=== PATIENT | female | born 2000 | race Caucasian/White ===

== ENCOUNTER 2019-02-05 11:57 | Emergency (ER) | payer MEDICAID ==
[~2019-02-05] VITALS: Ht 165.1 cm; Wt 44.7 kg
[2019-02-05 12:08] VITALS: Ht 165.1 cm; Wt 44.7 kg
[2019-02-05] MEDS ORDERED: PRENAVITE1 TAB PO (12:10)
[2019-02-05 12:35] LABS: BASOPHILS 0.2 % (0-2); EOSINOPHILS 2.1 % (0-7); HEMATOCRIT 35.5 % (36.0-48.0); HEMOGLOBIN 11.9 g/dL (12-16); LYMPHOCYTES 30.6 % (15-50); MCH 27.4 pg (26.0-34.0); MCHC 33.5 g/dL (31.0-37.0); MCV 81.8 fL (80.0-100.0); MEAN PLATELET VOLUME 10.2 fL (7.4-10.4); MONOCYTES 10.6 % (2-11); NEUTROPHILS 56.5 % (40-80); PLATELET COUNT 232 10x3/uL (130-400); RBC 4.34 10x6/uL (4.00-5.40); RDW 14.2 % (11.5-14.5); WBC 5.3 10x3/uL (4.8-10.8)
[2019-02-05 12:49] LABS: ALKALINE PHOSPHATASE 39 U/L (46-116); ALT (SGPT) 12 U/L (10-68); BILIRUBIN - TOTAL 0.39 mg/dL (0.2-1.3); CALC OSMOLALITY 268 mosm/kg (275-300); CALCIUM 8.9 mg/dL (8.5-10.1); CARBON DIOXIDE 29.9 mmol/L (21.0-32.0); CHLORIDE - SERUM 101 mmol/L (98-107); CREATININE - SERUM 0.6 mg/dL (0.6-1.3); GLUCOSE 92 mg/dL (74-106); POTASSIUM - SERUM 3.5 mmol/L (3.5-5.1); PROTEIN - SERUM 7.4 g/dL (6.4-8.2); SODIUM 136 mmol/L (136-145); UREA NITROGEN 5 mg/dL (7-18); eGFR NON AFRICAN AMERICAN > 90 mL/min (90-120)
[2019-02-05 12:52] LABS: APPEARANCE HAZY (CLEAR); BACTERIA FEW /hpf (NONE SEEN); BILIRUBIN NEGATIVE (NEGATIVE); COLOR YELLOW (YELLOW); EPITHELIAL CELLS 0-5 /hpf (0-5); GLUCOSE NEGATIVE (NEGATIVE); KETONE NEGATIVE (NEGATIVE); NITRITE NEGATIVE (NEGATIVE); PROTEIN NEGATIVE (NEGATIVE); RED CELLS - URINE RARE /hpf (0-5); SPECIFIC GRAVITY 1.025 (1.005-1.020); UROBILINOGEN NORMAL (NORMAL); WHITE CELLS - URINE OCC /hpf (0-5)
[2019-02-05 13:16] LABS: AMYLASE - SERUM 68 U/L (25-115); HCG - QUANTITATIVE (MATERNAL) 55943 mIU/mL; LIPASE 131 U/L (73-393)
[2019-02-05 15:49] VITALS: BP 95/65
== END 2019-02-05 15:45 | disposition home or self-care (01) ==
LOC: D.ER 11:57
PROVIDERS: Family Medicine
DX: O26.891 Other specified pregnancy related conditions, first trimester (principal); Z3A.00 Weeks of gestation of pregnancy not specified; R10.9 Unspecified abdominal pain

== ENCOUNTER 2019-02-15 16:47 | Emergency (ER) | payer SELFPAY ==
[~2019-02-15] VITALS: Ht 165.1 cm; Wt 45.2 kg
[~2019-02-15 16:47] MED LIST: PRENAVITE1 TAB PO
[2019-02-15 16:50] VITALS: Ht 165.1 cm; Wt 45.2 kg
[2019-02-15] MEDS ORDERED: GINGER (16:55)
[2019-02-15 20:10] VITALS: BP 107/69
== END 2019-02-15 20:10 | disposition home or self-care (01) ==
LOC: D.ER 16:47
DX: O26.891 Other specified pregnancy related conditions, first trimester (principal); Z3A.01 Less than 8 weeks gestation of pregnancy

== ENCOUNTER 2019-02-18 17:11 | Emergency (ER) | payer MEDICAID ==
[~2019-02-18] VITALS: Ht 165.1 cm; Wt 45.2 kg
[~2019-02-18 17:11] MED LIST changes: +GINGER
[2019-02-18 17:16] VITALS: Ht 165.1 cm; Wt 45.2 kg
[2019-02-18 18:23] LABS: BASOPHILS 0.2 % (0-2); EOSINOPHILS 1.3 % (0-7); HEMATOCRIT 34.7 % (36.0-48.0); HEMOGLOBIN 11.8 g/dL (12-16); IMMATURE GRANULOCYTES 0.2 % (0-5); LYMPHOCYTES 23.1 % (15-50); MCH 27.6 pg (26.0-34.0); MCV 81.1 fL (80.0-100.0); MEAN PLATELET VOLUME 10.4 fL (7.4-10.4); MONOCYTES 7.5 % (2-11); NEUTROPHILS 67.7 % (40-80); PLATELET COUNT 213 10x3/uL (130-400); RBC 4.28 10x6/uL (4.00-5.40); RDW 14.7 % (11.5-14.5); WBC 5.5 10x3/uL (4.8-10.8)
[2019-02-18 18:38] LABS: ALKALINE PHOSPHATASE 32 U/L (46-116); ALT (SGPT) 20 U/L (10-68); BILIRUBIN - TOTAL 0.36 mg/dL (0.2-1.3); CALC OSMOLALITY 263 mosm/kg (275-300); CALCIUM 8.9 mg/dL (8.5-10.1); CARBON DIOXIDE 24.8 mmol/L (21.0-32.0); CHLORIDE - SERUM 101 mmol/L (98-107); CREATININE - SERUM 0.5 mg/dL (0.6-1.3); GLUCOSE 89 mg/dL (74-106); POTASSIUM - SERUM 3.6 mmol/L (3.5-5.1); PROTEIN - SERUM 7.3 g/dL (6.4-8.2); SODIUM 134 mmol/L (136-145); UREA NITROGEN 4 mg/dL (7-18); eGFR NON AFRICAN AMERICAN > 90 mL/min (90-120)
[2019-02-18 18:58] LABS: HCG - QUANTITATIVE (MATERNAL) 153285 mIU/mL
[2019-02-18 21:20] LABS: APPEARANCE SL CLDY (CLEAR); BILIRUBIN NEGATIVE (NEGATIVE); COLOR STRAW (YELLOW); GLUCOSE NEGATIVE (NEGATIVE); KETONE NEGATIVE (NEGATIVE); NITRITE NEGATIVE (NEGATIVE); PROTEIN NEGATIVE (NEGATIVE); UROBILINOGEN NORMAL (NORMAL)
[2019-02-18 21:22] LABS: RED CELLS - URINE 0-5 /hpf (0-5); WHITE CELLS - URINE 0-5 /hpf (0-5)
[2019-02-18 21:23] LABS: AMORPHOUS SEDIMENT <1+ /lpf (NONE SEEN); BACTERIA FEW /hpf (NONE SEEN); SPERMATOZOA 0-5 /hpf (NONE SEEN)
[2019-02-18 23:28] VITALS: BP 106/69
== END 2019-02-18 23:29 | disposition home or self-care (01) ==
LOC: D.ER 17:11
PROVIDERS: Family Medicine
DX: O20.9 Hemorrhage in early pregnancy, unspecified (principal); Z3A.08 8 weeks gestation of pregnancy

== ENCOUNTER → 2019-05-31 02:51 | Outpatient (CLI) | payer MEDICAID ==
[2019-02-18 17:16] VITALS: BMI 16.5
--- NOTE | 2019-05-31 02:50 | NUR ---
PT. CALLED FOR TO BE TAKEN TO NBN TO BE WEIGHED . SAME DONE. COLA DRINK SERVED TO PT. INQUIRED IF PT. WAS HUNGRY AND PT. STATES THAT SHE HAD PEANUT BUTTER CRACKERS EARLIER. DENIES ANY NEEDS.
[2019-05-31 04:14] LABS: APPEARANCE CLOUDY (CLEAR); BILIRUBIN NEGATIVE (NEGATIVE); COLOR YELLOW (YELLOW); GLUCOSE NEGATIVE (NEGATIVE); KETONE NEGATIVE (NEGATIVE); NITRITE POSITIVE (NEGATIVE); PROTEIN 2+ mg/dL (NEGATIVE); UROBILINOGEN NORMAL (NORMAL)
[2019-05-31 04:16] LABS: BACTERIA FEW /hpf (NEGATIVE); EPITHELIAL CELLS 0-5 /hpf (0-5); MUCUS <1+ /lpf (NONE SEEN)
== END | disposition home or self-care (01) ==
LOC: D.LDO 02:51
PROVIDERS: ATTEND Obstetrics & Gynecology
DX: O26.892 Other specified pregnancy related conditions, second trimester (principal); R10.9 Unspecified abdominal pain; Z3A.23 23 weeks gestation of pregnancy

== ENCOUNTER → 2019-06-08 00:54 | Outpatient (CLI) | payer MEDICAID ==
[2019-02-18 17:16] VITALS: BMI 16.5
[2019-06-08 02:05] LABS: APPEARANCE HAZY (CLEAR); BILIRUBIN NEGATIVE (NEGATIVE); COLOR YELLOW (YELLOW); GLUCOSE NEGATIVE (NEGATIVE); KETONE NEGATIVE (NEGATIVE); NITRITE NEGATIVE (NEGATIVE); PROTEIN 1+ mg/dL (NEGATIVE); UROBILINOGEN NORMAL (NORMAL)
[2019-06-08 02:07] LABS: AMORPHOUS SEDIMENT <1+ /lpf (NONE SEEN); BACTERIA FEW /hpf (NEGATIVE); EPITHELIAL CELLS 0-5 /hpf (0-5); RED CELLS - URINE 0-5 /hpf (0-5); WHITE CELLS - URINE 0-5 /hpf (NEGATIVE)
== END | disposition home or self-care (01) ==
LOC: D.LDO 00:54
PROVIDERS: ATTEND Obstetrics & Gynecology
DX: O26.899 Other specified pregnancy related conditions, unspecified trimester (principal); Z3A.00 Weeks of gestation of pregnancy not specified; R10.9 Unspecified abdominal pain

== ENCOUNTER 2019-09-14 21:26 | Inpatient (IN) | payer MEDICAID ==
[~2019-09-14] VITALS: Ht 165.1 cm; Wt 63.0 kg
[2019-09-14 21:35] VITALS: BP 126/76; Ht 165.1 cm; Wt 63.0 kg
[2019-09-14 23:34] LABS: HEMATOCRIT 30.9 % (36.0-48.0); HEMOGLOBIN 10.2 g/dL (12-16); MCH 27.4 pg (26.0-34.0); MCV 83.1 fL (80.0-100.0); MEAN PLATELET VOLUME 12.1 fL (7.4-10.4); RBC 3.72 10x6/uL (4.00-5.40); RDW 18.3 % (11.5-14.5); WBC 6.9 10x3/uL (4.8-10.8)
--- NOTE | 2019-09-15 19:00 | NUR ---
REPORT RECEIVED FROM KAYKAY GATES.
--- NOTE | 2019-09-15 20:20 | NUR ---
PATIENT TRANSFERRED TO POST ROOM 1278. PATIENT ORIENTED TO ROOM AND CALL SYSTEM.
[2019-09-15 20:28] VITALS: BP 118/66
--- NOTE | 2019-09-15 20:28 | NUR ---
PATIENT SITTING UP IN BED. IN OPEN CRIB NEXT TO BED. FAMILY AT BEDSIDE. ASSESSMENT AND VITAL SIGNS DONE AT THIS TIME. RESPIRATIONS AT EASE. LUNG SOUNDS CLEAR IN ALL LEAL. HEART REGULAR RATE AND RHTYHM. ABDOMEN SOFT, NON DISTENDED. BOWEL SOUNDS PRESENT IN ALL QUADRANTS. FUNDUS FIRM, 1 BELOW UMBILICUS. LOCHIA RUBRA AND SMALL AMOUNT NOTED TO HUDSON PAD. EPISIOTOMY APPPROXIMATED. PATIENT EDUCATED ON HOW TO CARE FOR PERINEUM. PATIENT VERBALIZES UNDERSTANDING. NO EDEMA NOTED. SALINE LOCK TO L WRIST. SALINE LOCK PATENT. NO REDNESS OR EDEMA NOTED TO SITE. PATIENT STATES PAIN 8 OUT OF 10. SCHEDULED TYLENOL 1000 MG ADMINISTERED PO. PATIENT DENIES ANY FURTHER NEEDS. BED IN LOWEST POSITION, SIDE RAILS UP X 2, C/L AND WATER WITHIN REACH.
--- NOTE | 2019-09-15 22:00 | NUR ---
PATIENT SITTING UP IN BED HOLDING INFANT. PATIENT STATES PAIN 4 OUT OF 10. DENIES ANY NEEDS OR CONCERNS AT THIS TIME. BED IN LOWEST POSITIN, SIDE RAILS UP X 2, C/L AND WATER WITHIN REACH.
--- NOTE | 2019-09-15 22:40 | NUR ---
sitting up in bed . no needs voiced at this time
--- NOTE | 2019-09-15 23:45 | NUR ---
PATIENT LYING QUIETLY IN BED WITH EYES CLOSED. EASILY AROUSED. PATIENT DENIES ANY NEEDS OR CONCERNS. DENIES PAIN AT THIS TIME. BED IN LOWEST POSITION, SIDE RAILS UP X 2, C/L AND WATER WITHIN REACH.
--- NOTE | 2019-09-16 01:50 | NUR ---
PATIENT SITTING UP IN BED ATTEMPTING TO BREASTFEED. NURSERY NURSE ASSISTING PATIENT WITH .
--- NOTE | 2019-09-16 02:19 | NUR ---
PATIENT SITTING UP IN BED INFANT. TYLENOL 1000 MG ADMINISTERED AT THIS TIME, PATIENT STATES PAIN 3 OUT OF 10. DENIES ANY FURTHER NEEDS. BED IN LOWEST POSITION,SIDE RAILS UP X 2, CL AND WATER WITHIN REACH.
[2019-09-16 04:01] VITALS: BP 93/59
--- NOTE | 2019-09-16 06:00 | NUR ---
PATIENT SITTING UP IN BED. PATIENT DENIES PAIN AT THIS TIME. IN OPEN CRIB AT BEDSIDE. BED IN LOWEST POSITION, SIDE RAILS UP X 2, C/L AND WATER WITHIN REACH.
[2019-09-16 07:13] LABS: RAPID PLASMA REAGIN Non Reactive (Non Reactive)
--- NOTE | 2019-09-16 08:00 | NUR ---
SHIFT ASSESSMENT COMPLETED PER FLOWSHEET. VSS. FUNDUS FIRM, MIDLINE AND U2 WITH SCANT RUBRA LOCHIA, NO CLOTS NOTED, REPORTS THAT SHE IS VOIDING WITHOUT DIFFICULTY. ICE WATER AND SUGAR PROVIDED PER PT REQUEST. DENIES ADDITIONAL NEEDS. PT UP IN ROOM. STEADY GAIT NOTED. BED IN LOW POSITION AND CALL LIGHT PLACED WITHIN PT REACH. WILL CONTINUE TO MONITOR.
[2019-09-16 08:02] VITALS: BP 109/72
--- NOTE | 2019-09-16 08:45 | NUR ---
DENIES PAIN AND NEEDS AT THIS TIME. CURRENTLY SITTING ON COUCH BONDING WITH .
--- NOTE | 2019-09-16 11:00 | NUR ---
UP AND ABOUT IN ROOM- DENIES NEEDS.
--- NOTE | 2019-09-16 14:18 | NUR ---
ASLEEP -RESP REG AND EVEN.
--- NOTE | 2019-09-16 14:25 | NUR ---
rings call light. states is awake. vs done. requests iv come out. iv removed with cath tip intact. pressure held and bandaide applied. denies other needs.
[2019-09-16 14:29] VITALS: BP 111/68
--- NOTE | 2019-09-16 16:30 | NUR ---
THIS RN TO ROOM PER PT CALL LIGHT. PT STATES SHE WAS CONCERNED ABOUT RASH/RED SPOTS ON 'S SKIN. PT REASSURED AND EDUCATED REGARDING RASH. PT HAS QUESTIONS REGARDING , QUESTIONS ANSWERED. PT STATES WILL LATCH TO BREAST, DENIES NEED FOR ASSIST. VISITORS TO ROOM AT THIS TIME. SRUx2, CL IN REACH.
--- NOTE | 2019-09-16 19:03 | NUR ---
REPORT TO PM SHIFT.
[2019-09-16 19:24] VITALS: BP 107/72
--- NOTE | 2019-09-16 19:24 | NUR ---
VSS. PT'S FUNDUS IS FIRM, MIDLINE, 1 BELOW, SCANT RUBRA LOCHIA NOTED. PT STATES HER PAIN IS 1-2/10 TO HER PERINEAL AREA. PT HOLDING INFANT IN ARM, ATTEMPTING TO BREASTFEED. PT STATES ALL HER NEEDS ARE CURRENTLY MET. BED IN LOWEST POSITON, SIDE RAILS UP X2, CALL LIGHT IN REACH.
--- NOTE | 2019-09-16 22:21 | NUR ---
PT AT [facility] REQUESTING ANOTHER NIPPLE SHIELD. THIS RN REQUESTED NEW NIPPLE SHIELD FROM NURSERY.
--- NOTE | 2019-09-16 23:52 | NUR ---
PT ROUNDS MADE. PT STATES ALL HER NEEDS HAVE BEEN MET. FUNDUS IS FIRM, MIDLINE, 2 BELOW, SCANT BLEEDING ON HUDSON PAD. SIGNIFICANT OTHER AT BEDSIDE. BED IN LOWEST POSITION, SIDE RAILS UP X2, CALL LIGHT WITHIN REACH.
[2019-09-17 03:38] VITALS: BP 128/61
--- NOTE | 2019-09-17 03:38 | NUR ---
RN TO PT BEDSIDE TO ADMINISTER TYLENOL 1000MG PO PER MD ORDERS. PT STATES HER PAIN IS 1/10 ON A PAIN SCALE TO HER PERINEAL AREA. FUNDUS IS FIRM, MIDLINE, 2 BELOW. PT DENIES ANY DISCOMFORT, PT IS CALM AND COOPERATIVE. PT LEFT WATCHING TV. BED IN LOWEST POSITION, SIDE RAILS UP X2, CALL LIGHT IN REACH.
[2019-09-17 07:44] VITALS: BP 104/64
--- NOTE | 2019-09-17 07:46 | NUR ---
assessment done. up and about in room. verbal responses appro to questions. states pain 3-4 -perineal area. states is using dermaplast,betadine and warm water. tucks pads. denies needs at this time.
--- NOTE | 2019-09-17 08:31 | NUR ---
RINGS CALL LIGHT- STATES HAS NOSE BLEED- NO BLEEDING CURRENTLY-PT HOLDING PAPER TOWEL TO NOSE. COOL CLOTH GIVEN. WILL MONITOR.
--- NOTE | 2019-09-17 08:49 | NUR ---
sitting up on side of bed. states nose bleed is gone.
--- NOTE | 2019-09-17 09:00 | NUR ---
dr omer in unit.informed of slight nosebleed. no new orders.
--- NOTE | 2019-09-17 15:00 | NUR ---
UP AND ABOUT IN ROOM AND UNIT DESIRED. STATES THAT NEEDS DERMAPLAST AND TUCKS PADS BEFORE DISCHARGE. VACCINE HX REVIEWED AND HAS TAKEN TDAP VACCINE PREVIOUSLY- NOT ON RECOMMENDED LIST.
[2019-09-17 15:46] VITALS: BP 110/71
--- NOTE | 2019-09-17 15:58 | NUR ---
DISCHARGE INST VERBAL AND WRITTEN GIVEN. PFW INST GIVEN ALONG WITH [facility] POST WARNING SIGNS FORM. SEE ALSO SIGNED DISCHARGE INST FORM. PT HEALTH SUMMARY GIVEN. PT STATES SHE WILL READ OVER ALL INST AND ASK NURSE IF ANY QUESTIONS.
--- NOTE | 2019-09-17 19:25 | NUR ---
KINDRA,RN WHEELED PATIENT TO POV AT THIS TIME
== END 2019-09-17 19:25 | disposition home or self-care (01) | DRG 807 ==
LOC: D.LD 21:26
PROVIDERS: ADMIT Obstetrics & Gynecology; ATTEND Obstetrics & Gynecology
PROC: 10E0XZZ Delivery of Products of Conception, External Approach (ICD-10-PCS; principal; 2019-09-15)
DX: O71.82 Other specified trauma to perineum and vulva (principal); Z37.0 Single live birth; Z3A.39 39 weeks gestation of pregnancy

== ENCOUNTER 2019-09-19 07:51 | Emergency (ER) | payer MEDICAID ==
[~2019-09-19] VITALS: Ht 165.1 cm; Wt 65.9 kg
[2019-09-19 08:02] VITALS: Ht 165.1 cm; Wt 65.9 kg
[2019-09-19 08:28] LABS: BASOPHILS 0.1 % (0-2); EOSINOPHILS 2.9 % (0-7); HEMATOCRIT 32.3 % (36.0-48.0); HEMOGLOBIN 10.3 g/dL (12-16); IMMATURE GRANULOCYTES 0.4 % (0-5); LYMPHOCYTES 16.9 % (15-50); MCH 27.2 pg (26.0-34.0); MCHC 31.9 g/dL (31.0-37.0); MCV 85.2 fL (80.0-100.0); MEAN PLATELET VOLUME 10.2 fL (7.4-10.4); MONOCYTES 7.8 % (2-11); NEUTROPHILS 71.9 % (40-80); PLATELET COUNT 202 10x3/uL (130-400); RBC 3.79 10x6/uL (4.00-5.40); RDW 18.5 % (11.5-14.5); WBC 9.6 10x3/uL (4.8-10.8)
[2019-09-19 08:41] LABS: CALC OSMOLALITY 275 mosm/kg (275-300); CALCIUM 9.5 mg/dL (8.5-10.1); CARBON DIOXIDE 26.4 mmol/L (21.0-32.0); CHLORIDE - SERUM 106 mmol/L (98-107); CREATININE - SERUM 0.5 mg/dL (0.6-1.3); GLUCOSE 84 mg/dL (74-106); POTASSIUM - SERUM 3.8 mmol/L (3.5-5.1); SODIUM 140 mmol/L (136-145); UREA NITROGEN 6 mg/dL (7-18); eGFR NON AFRICAN AMERICAN > 90 mL/min (90-120)
[2019-09-19 08:49] LABS: ALBUMIN 2.6 g/dL (3.4-5.0); ALKALINE PHOSPHATASE 101 U/L (30-120); ALT (SGPT) 93 U/L (10-68); BILIRUBIN - TOTAL 0.17 mg/dL (0.2-1.3); PROTEIN - SERUM 6.5 g/dL (6.4-8.2)
[2019-09-19 10:27] LABS: BILIRUBIN NEGATIVE (NEGATIVE); GLUCOSE NEGATIVE (NEGATIVE); KETONE NEGATIVE (NEGATIVE); NITRITE NEGATIVE (NEGATIVE); SPECIFIC GRAVITY 1.015 (1.005-1.020); UROBILINOGEN NORMAL (NORMAL)
[2019-09-19 10:28] LABS: BACTERIA FEW /hpf (NEGATIVE); EPITHELIAL CELLS 0-5 /hpf (0-5)
[2019-09-19 11:02] VITALS: BP 110/72
== END 2019-09-19 11:03 | disposition home or self-care (01) ==
LOC: D.ER 07:51
PROVIDERS: Family Medicine
DX: O90.89 Other complications of the puerperium, not elsewhere classified (principal); R60.9 Edema, unspecified

== ENCOUNTER 2020-01-14 00:15 | Emergency (ER) | payer MEDICAID ==
[~2020-01-14] VITALS: Ht 165.1 cm; Wt 54.4 kg
[2020-01-14 00:34] VITALS: Ht 165.1 cm; Wt 54.4 kg
[2020-01-14 01:02] LABS: BASOPHILS 0.3 % (0-2); EOSINOPHILS 2.1 % (0-7); HEMATOCRIT 36.1 % (36.0-48.0); HEMOGLOBIN 11.7 g/dL (12-16); LYMPHOCYTES 50.1 % (15-50); MCH 27.3 pg (26.0-34.0); MCHC 32.4 g/dL (31.0-37.0); MCV 84.1 fL (80.0-100.0); MEAN PLATELET VOLUME 10.4 fL (7.4-10.4); MONOCYTES 7.3 % (2-11); NEUTROPHILS 40.2 % (40-80); RBC 4.29 10x6/uL (4.00-5.40); RDW 13.4 % (11.5-14.5); WBC 3.8 10x3/uL (4.8-10.8)
[2020-01-14 01:03] LABS: PLATELET COUNT 250 10x3/uL (130-400)
[2020-01-14 01:04] LABS: CALC OSMOLALITY 279 mosm/kg (275-300); CALCIUM 8.6 mg/dL (8.5-10.1); CARBON DIOXIDE 28.8 mmol/L (21.0-32.0); CHLORIDE - SERUM 102 mmol/L (98-107); CREATININE - SERUM 0.8 mg/dL (0.6-1.3); GLUCOSE 97 mg/dL (74-106); POTASSIUM - SERUM 4.1 mmol/L (3.5-5.1); SODIUM 140 mmol/L (136-145); UREA NITROGEN 15 mg/dL (7-18); eGFR NON AFRICAN AMERICAN > 90 mL/min (90-120)
[2020-01-14 01:21] LABS: ALBUMIN 3.6 g/dL (3.4-5.0); ALKALINE PHOSPHATASE 40 U/L (30-120); ALT (SGPT) 25 U/L (10-68); BILIRUBIN - TOTAL 0.16 mg/dL (0.2-1.3); PRO BNP 82 pg/mL (0-125); PROTEIN - SERUM 6.9 g/dL (6.4-8.2)
[2020-01-14 02:25] LABS: HCG SERUM NEGATIVE (NEGATIVE)
[2020-01-14] MEDS ORDERED: DICLOFENAC SODI50 MG PO (03:57)
[2020-01-14 04:06] VITALS: BP 105/84
== END 2020-01-14 04:06 | disposition home or self-care (01) ==
LOC: D.ER 00:15
PROVIDERS: Family Medicine
DX: R07.89 Other chest pain (principal); K21.9 Gastro-esophageal reflux disease without esophagitis; R06.02 Shortness of breath

== ENCOUNTER 2020-10-22 | Emergency (ER) | payer MEDICAID ==
[~2020-10-22] VITALS: Ht 165.1 cm; Wt 54.5 kg
[~2020-10-22] MED LIST changes: +DICLOFENAC SODI50 MG PO
[2020-10-22 00:04] VITALS: BP 124/94; Ht 165.1 cm; Wt 54.5 kg
== END 2020-10-22 00:41 | disposition home or self-care (01) ==
LOC: D.ER
DX: S00.03XA Contusion of scalp, initial encounter (principal); S61.219A Laceration without foreign body of unspecified finger without damage to nail, initial encounter; W19.XXXA Unspecified fall, initial encounter; Y93.9 Activity, unspecified; Y92.9 Unspecified place or not applicable

== ENCOUNTER 2020-11-06 23:43 | Emergency (ER) | payer MEDICAID ==
[~2020-11-06] VITALS: Ht 165.1 cm; Wt 54.4 kg
[2020-11-06 23:48] VITALS: BP 132/85; Ht 165.1 cm; Wt 54.4 kg
[2020-11-07 00:27] LABS: BACTERIA MANY HPF (NONE SEEN)
[2020-11-07 00:28] LABS: HCG URINE NEGATIVE (NEGATIVE)
[2020-11-07] MEDS ORDERED: CEPHALEXIN500 M1 PO (00:37)
[2020-11-07] MEDS ORDERED: MACROBID100 MG PO (00:37)
== END 2020-11-07 01:28 | disposition home or self-care (01) ==
LOC: D.ER 23:43
PROVIDERS: Family Medicine
DX: N39.0 Urinary tract infection, site not specified (principal)